=== PATIENT | male | born 1980 | race Caucasian/White ===

== ENCOUNTER 2020-03-30 20:13 | Emergency (ER) | payer BC, OTHER ==
[2020-03-30] MEDS ORDERED: Lidocaine 2% Viscous Solution 15 ML Cup ONE ×2 (20:35→20:37)
[2020-03-30] MEDS ORDERED: Lidocaine 2% Viscous Solution 15 ML Cup PO ONE (20:35)
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
== END 2020-03-30 21:20 | disposition home or self-care (01) ==
LOC: FB.ED 20:13
DX: T25.221A Burn of second degree of right foot, initial encounter (principal); T25.222A Burn of second degree of left foot, initial encounter; X08.8XXA Exposure to other specified smoke, fire and flames, initial encounter
CPT/HCPCS: 99283; A9270